=== PATIENT | male | born 1980 | race African-American/Black ===

== ENCOUNTER 2021-08-28 12:15 | Emergency (ER) | payer MEDICAID ==
[~2021-08-28] VITALS: Ht 185.4 cm; Wt 121.0 kg
[~2021-08-28 12:15] MED LIST: ASPI-1406 MT; ATOR20TA65 MT; CARV25TA47 MT; FURO-151 PO; GLIP-12 MT; HYDR100T26 PO; LISI40TA13 PO; METF-416 PO; POTA20TA82 PO
[2021-08-28 12:30] VITALS: BP 145/79
== END 2021-08-28 15:53 | disposition home or self-care (01) ==
LOC: ER 12:15
DX: R41.0 Disorientation, unspecified (principal); T46.5X5A Adverse effect of other antihypertensive drugs, initial encounter; F41.9 Anxiety disorder, unspecified; E78.00 Pure hypercholesterolemia, unspecified; E11.9 Type 2 diabetes mellitus without complications; I11.0 Hypertensive heart disease with heart failure; I50.9 Heart failure, unspecified; Z79.84 Long term (current) use of oral hypoglycemic drugs; Z79.82 Long term (current) use of aspirin; Z88.5 Allergy status to narcotic agent; Y92.018 Other place in single-family (private) house as the place of occurrence of the external cause
CPT/HCPCS: 82962; 99281

== ENCOUNTER 2022-03-16 12:28 | Emergency (ER) | payer MEDICAID ==
[~2022-03-16] VITALS: Ht 185.4 cm; Wt 123.0 kg
[2022-03-16 12:53] VITALS: BP 161/110
== END 2022-03-16 14:35 | disposition left against medical advice (07) ==
LOC: ER 13:32
DX: Z53.21 Procedure and treatment not carried out due to patient leaving prior to being seen by health care provider (principal)

== ENCOUNTER 2022-04-17 21:03 | Emergency (ER) | payer MEDICAID, OTHER ==
[~2022-04-17] VITALS: Ht 182.9 cm; Wt 112.0 kg
[2022-04-17] MEDS ORDERED: TRAMADOL 50MG TABLET PO ONE (22:15)
[2022-04-17] MEDS ORDERED: FUROSEMIDE 40MG/4ML VIAL IVP ONE (22:15)
[2022-04-17] MEDS ORDERED: ENALAPRIL 2.5MG/2ML VIAL 2ML IV ONE (22:15)
[2022-04-17] MEDS ORDERED: NITROGLYCERIN OINT 1GM/INCH UDPKT TD ONE (22:15)
[2022-04-17] MEDS ORDERED: CLONIDINE 0.2MG TABLET PO ONE (23:30)
[2022-04-18 00:27] VITALS: BP 169/100
[2022-04-18] MEDS ORDERED: CLONIDINE 0.2MG TABLET PO ONE (01:15)
== END 2022-04-18 03:31 | disposition left against medical advice (07) ==
LOC: ER 21:03
DX: I11.0 Hypertensive heart disease with heart failure (principal); I50.9 Heart failure, unspecified; I16.0 Hypertensive urgency; E11.9 Type 2 diabetes mellitus without complications; E78.00 Pure hypercholesterolemia, unspecified; Z79.899 Other long term (current) drug therapy
CPT/HCPCS: 36415; 71045; 82962; 83880; 96374; 96375; 99284; J1940; J3490

== ENCOUNTER 2022-10-07 00:34 | Emergency (ER) | payer MEDICAID, OTHER ==
[~2022-10-07] VITALS: Ht 185.4 cm; Wt 113.0 kg
[~2022-10-07 00:34] MED LIST changes: +POTA-205 PO; -POTA20TA82 PO
[2022-10-07 03:58] LABS: BASOPHILS % 0.4 % (0.0-2.0); EOSINOPHILS % 0.2 % (0.0-5.0); HEMATOCRIT. 43.1 % (42.0-52.0); HEMOGLOBIN. 14.5 g/dL (14.0-18.0); LYMPHOCYTES % 7.6 % (20.0-50.0); MEAN CORPUSCULAR HEMOGLOBIN 28.7 pg (28.0-32.0); MEAN CORPUSCULAR VOLUME 85.4 fL (80.0-94.0); MEAN PLATELET VOLUME 9.3 fl (7.4-10.4); MONOCYTES % 4.4 % (2.0-8.0); NEUTROPHILS % 87.4 % (40.0-76.0); PLATELET 203 x1000/uL (130-400); RED BLOOD CELL COUNT 5.05 mill/uL (4.7-6.1); RED CELL DISTRIBUTION WIDTH 13.6 % (11.6-14.6)
[2022-10-07 04:15] LABS: CHLORIDE 104 mEq/L (98-107)
[2022-10-07 07:02] VITALS: BP 135/94
== END 2022-10-07 07:21 | disposition left against medical advice (07) ==
LOC: ER 00:45 → EDBEDREQ 04:33 → EDBEDREQTM 04:33 → ER 07:21
DX: I11.0 Hypertensive heart disease with heart failure (principal); I50.9 Heart failure, unspecified; J96.91 Respiratory failure, unspecified with hypoxia; E11.9 Type 2 diabetes mellitus without complications; Z88.5 Allergy status to narcotic agent; Z79.899 Other long term (current) drug therapy; E78.00 Pure hypercholesterolemia, unspecified; Z79.82 Long term (current) use of aspirin
CPT/HCPCS: 36415; 71045; 80053; 83880; 84484; 85025; 93005; 99291

== ENCOUNTER 2023-06-17 16:31 | Inpatient (IN) | payer OTHER, MEDICAID ==
[~2023-06-17] VITALS: Ht 185.4 cm; Wt 121.6 kg
[2023-06-17 16:34] VITALS: O2SAT 100
[2023-06-17] MEDS ORDERED: HYDRALAZINE 20MG/ML VIAL IV ONE (17:30)
[2023-06-17] MEDS ORDERED: CLONIDINE 0.1MG TABLET PO ONE (17:30)
[2023-06-17] MEDS ORDERED: ASPIRIN 325MG EC TABLET PO ONE (17:30)
[2023-06-17 18:04] LABS: BASOPHILS % 0.4 % (0.0-2.0); EOSINOPHILS % 1.1 % (0.0-5.0); HEMOGLOBIN. 16.1 g/dL (14.0-18.0); LYMPHOCYTES % 17.7 % (20.0-50.0); MEAN CORPUSCULAR HEMOGLOBIN 29.5 pg (28.0-32.0); MEAN CORPUSCULAR VOLUME 85.9 fL (80.0-94.0); MEAN PLATELET VOLUME 9.6 fl (7.4-10.4); NEUTROPHILS % 75.8 % (40.0-76.0); PLATELET 203 x1000/uL (130-400); RED BLOOD CELL COUNT 5.47 mill/uL (4.7-6.1); RED CELL DISTRIBUTION WIDTH 14.5 % (11.6-14.6)
[2023-06-17 18:16] LABS: CHLORIDE 108 mEq/L (98-107)
[2023-06-17] MEDS ORDERED: CLONIDINE 0.2MG TABLET PO ONE (20:45)
[2023-06-17] MEDS ORDERED: NITROGLYCERIN 0.4MG/HR PATCH TOP ONE (20:45)
[2023-06-18] MEDS ORDERED: CLONIDINE 0.1MG TABLET PO PRN (05:15)
[2023-06-18] MEDS: HYDRALAZINE HCL 100MG TABLET PO SCH ×2 (06:22→14:30)
[2023-06-18 09:55] VITALS: BP 136/76; PULSE 91; RESP 16; TEMP 97.9
[2023-06-18 10:00] VITALS: BP 136/76; PULSE 91; RESP 17; TEMP 97.9
[2023-06-18 12:00] VITALS: BP 133/74; PULSE 95; RESP 20; TEMP 97.9
[2023-06-18] MEDS ORDERED: METF-416 PO (12:06)
[2023-06-18] MEDS ORDERED: NIFE-32 MT (12:06)
[2023-06-18] MEDS ORDERED: HYDR100T26 PO (12:06)
[2023-06-18 14:00] VITALS: BP 133/74
[2023-06-18 14:15] VITALS: BP_SYST 74; PULSE 133; TEMP 97.9
== END 2023-06-18 15:36 | DRG 313 ==
LOC: ER 16:31 → MICUSO 22:04 → 7WST 06-18 08:56
PROVIDERS: ADMIT Internal Medicine; ATTEND Internal Medicine
DX: R07.89 Other chest pain (principal); I11.0 Hypertensive heart disease with heart failure; E11.9 Type 2 diabetes mellitus without complications; E78.00 Pure hypercholesterolemia, unspecified; I50.9 Heart failure, unspecified; Z88.5 Allergy status to narcotic agent; Z79.82 Long term (current) use of aspirin; Z79.899 Other long term (current) drug therapy
CPT/HCPCS: 36415; 71045; 80053; 82962; 83880; 85025; 93005; 99285; J0360

== ENCOUNTER 2025-07-25 15:29 | Emergency (ER) | payer MEDICAID, OTHER ==
[~2025-07-25] VITALS: Ht 185.4 cm; Wt 123.0 kg
[~2025-07-25 15:29] MED LIST changes: -CARV25TA47 MT; -FURO-151 PO; -GLIP-12 MT; +HYDR100T11 PO; -HYDR100T26 PO; -LISI40TA13 PO; +NIFE-32 MT; -POTA-205 PO
[2025-07-25 15:54] VITALS: O2SAT 99
[2025-07-25 16:19] LABS: BASOPHILS % 0.8 % (0.0-2.0); EOSINOPHILS % 4.1 % (0.0-5.0); HEMATOCRIT. 41.2 % (42.0-52.0); HEMOGLOBIN. 14.3 g/dL (14.0-18.0); LYMPHOCYTES % 19.5 % (20.0-50.0); MEAN PLATELET VOLUME 9.2 fl (7.4-10.4); MONOCYTES % 7.4 % (2.0-8.0); NEUTROPHILS % 68.2 % (40.0-76.0); PLATELET 198 x1000/uL (130-400); RED BLOOD CELL COUNT 4.79 mill/uL (4.7-6.1); RED CELL DISTRIBUTION WIDTH 14.8 % (11.6-14.6)
[2025-07-25 16:36] LABS: CREATININE 1.4 mg/dL (0.6-1.3)
[2025-07-25 16:37] LABS: TROPONIN I HIGH SENSITIVITY 27 ng/L (3.0-53); UREA NITROGEN BLOOD 11 mg/dL (9-23)
[2025-07-25] MEDS: CLONIDINE 0.1MG TABLET PO NR (16:37)
[2025-07-25 16:38] LABS: ASPARTATE AMINOTRANSFERASE 16 IU/L (<34)
[2025-07-25 16:39] LABS: BILIRUBIN DIRECT 0.3 mg/dL (<=3.0); BILIRUBIN TOTAL 1.2 mg/dL (0.1-1.0); PROTEIN TOTAL 7.5 g/dL (6.0-8.3)
[2025-07-25] MEDS: POTASSIUM CHLORIDE 20MEQ TABLET SR PO SCH (17:45)
[2025-07-25 18:14] VITALS: BP 181/105; PULSE 75; RESP 18; TEMP 36.7; O2SAT 99
== END 2025-07-25 18:17 | disposition home or self-care (01) ==
LOC: ER 15:29
DX: I11.0 Hypertensive heart disease with heart failure (principal); I50.9 Heart failure, unspecified; E11.9 Type 2 diabetes mellitus without complications; E78.00 Pure hypercholesterolemia, unspecified; Z79.899 Other long term (current) drug therapy; Z79.84 Long term (current) use of oral hypoglycemic drugs; Z79.82 Long term (current) use of aspirin; Z88.5 Allergy status to narcotic agent
CPT/HCPCS: 36415; 80048; 80076; 83880; 84484; 85025; 93005; 99284